=== PATIENT | male | born 1995 | race Caucasian/White ===

== ENCOUNTER 2023-02-15 06:15 | Emergency (ER) | payer BC ==
[2023-02-15] MEDS ORDERED: Sodium Chloride 0.9% 1,000 ML IV ONE (06:16)
[2023-02-15 07:45] LABS: POTASSIUM,K 4.1 mmol/L (3.5-5.1)
== END 2023-02-15 09:10 | disposition home or self-care (01) ==
LOC: MW.ED 06:15
DX: N13.2 Hydronephrosis with renal and ureteral calculous obstruction (principal); Z79.899 Other long term (current) drug therapy
CPT/HCPCS: 36415; 74176; 80053; 81001; 82550; 85025; 96360; 99284; J7030